=== PATIENT | female | born 2000 | race Caucasian/White ===

== ENCOUNTER 2025-04-13 13:17 | Emergency (ER) | payer BC ==
[2025-04-13 13:21] VITALS: TEMP 98.2
[2025-04-13 14:16] LABS: BASOPHIL % 1.3 % (0.1-1.2); Basophil (Absolute #) 0.07 x10^3/uL (0.01-0.08); Eosinophil (Absolute #) 0.07 x10^3/uL (0.04-0.36); Hematocrit 44.2 % (34.1-44.9); Hemoglobin 15.0 g/dL (11.2-15.7); IMMATURE GRAN # 0.01 x10^3u/L (0.001-0.031); IMMATURE GRAN % 0.2 % (0.001-0.429); Lymphocyte (Absolute #) 2.10 x10^3/uL (1.18-3.74); Mean Corpuscular Hemoglobin 29.4 pg (25.6-32.2); Mean Corpuscular Hgb Concent. 33.9 g/dL (32.2-35.5); Monocyte (Absolute #) 0.36 x10^3/uL (0.24-0.86); NUCLEATED RBC # 0.00 x10^3u/L (0.00-0.012); NUCLEATED RBC % 0.0 % (0.00-0.2); Platelet Count 274 x10^3/uL (182-369); Red Blood Count 5.11 x10^6/uL (3.93-5.22); White Blood Count 5.5 x10^3/uL (3.98-10.04)
--- NOTE | 2025-04-13 14:25 | ERPHSYRPT ---
- History of Present Illness Time Seen by Provider: 04/13/25 14:10 Source: patient Exam Limitations: no limitations Patient Subjective Stated Complaint: patient walked into ED today because shes started taking two meedications on 04/09 for vaginosis and on 04/12 started noticing sideeffects from them Triage Nursing Assessment: patient is alert and orietnedx4, able to ambualte by self, walked to ED today to get checked out shes having nausea, upset stomach dizzyness, chest tightness and headaches that started when she started taking two new medications. skin warm dry and itnact. pupils perrla 3, no edema noted, lung sounds clear, pusles equal bilateral radius Physician History: Patient is a 25-year-old female no significant past medical history, recently diagnosed with a yeast infection and BV started on Flagyl and and Diflucan presents to our ED for possible adverse reaction to medication. Patient experiencing nausea upset stomach dizziness chest tightness and headaches. Patient contacted her provider who felt that her symptoms were related to her medications however patient was advised to come to our ED to rule out cardiac pathology. Patient has no significant past medical history otherwise. No trauma no fever no nausea no vomiting no diarrhea no rash. Patient declined pain medication she is resting comfortably. Patient voices no other complaints or concerns at this time. Portions of this note were created with voice recognition technology. There may be grammatical, spelling, punctuation or sound alike errors Timing/Duration: today Severity: moderate Modifying Factors: Improves With: nothing Associated Symptoms: denies symptoms Allergies/Adverse Reactions: amoxicillin Allergy (Verified 04/13/25 13:19) clindamycin Allergy (Verified 04/13/25 13:19) fluconazole Adverse Reaction (Verified 04/13/25 18:28) metronidazole Adverse Reaction (Verified 04/13/25 18:28) Hx Tetanus, Diphtheria Vaccination/Date Given: Yes Hx Influenza Vaccination/Date Given: No Hx Pneumococcal Vaccination/Date Given: No Immunizations Up to Date: Yes Travel Risk - International Travel Have you traveled outside of the country in past 3 weeks: No - Emerging Infectious Disease Are you exhibiting symptoms associated with any current EIDs: No - Review of Systems All Other Systems: Reviewed and Negative - Past Medical History Pertinent Past Medical History: No - Past Surgical History Past Surgical History: No Significant Family History: no pertinent family hx - Female History Hx Now: No - Social History Smoking Status: Never smoker Exposure to second hand smoke: No Drug Use: none - Social Determinants of Health Will the patient participate in the screening: Yes Do you worry about a steady place to live?: No Do you have any problems with any of the following?: No known problems In the past 12 months,have you had to go without utilities?: No Transportation Issues: No Has anyone in your support network made you feel unsafe?: No Have you or anyone in your house had to go w/o enough food: No - Nursing Vital Signs Nursing Vital Signs: Initial Vital Signs Temperature 98.2 F 04/13/25 13:17 Pulse Rate 89 04/13/25 13:17 Respiratory Rate 20 04/13/25 13:17 Blood Pressure 122/83 04/13/25 13:17 O2 Sat by Pulse Oximetry 99 04/13/25 13:17 Pain Scale Pain Intensity 2 - Physical Exam General Appearance: no apparent distress, alert Eye Exam: PERRL/EOMI, eyes nml inspection Ears, Nose, Throat Exam: normal ENT inspection, moist mucous membranes Neck Exam: normal inspection, full range of motion Respiratory Exam: normal breath sounds, lungs clear, airway intact, No respiratory distress Cardiovascular Exam: regular rate/rhythm, normal heart sounds, normal peripheral pulses Gastrointestinal/Abdomen Exam: soft, normal bowel sounds, No tenderness, No mass Back Exam: normal inspection, normal range of motion, No CVA tenderness, No vertebral tenderness Extremity Exam: normal inspection, normal range of motion, pelvis stable Neurologic Exam: alert, oriented x 3, cooperative, normal mood/affect, sensation nml, No motor deficits Skin Exam: normal color, warm, dry, No rash Lymphatic Exam: No adenopathy SpO2 Interpretation: normal SpO2: 98 O2 Delivery: Room Air - Course Nursing assessment & vital signs reviewed: Yes EKG Interpreted by Me: RATE (76), Sinus Rhythm, NORMAL AXIS, NORMAL INTERVALS, NORMAL QRS - Radiology Exams Chest X-ray Interpretation: Teleradiologist Report (Normal heart lungs and bony thorax) Ordered Tests: Active Orders 24 hr Category Date Time Status 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 STAT Care 04/13/25 14:11 Active IV Insertion STAT Care 04/13/25 14:11 Active Pulse Oximetry (ED) STAT Care 04/13/25 14:11 Active CHEST 1 VIEW (PORTABLE) Stat Exams 04/13/25 14:11 Completed CBC W DIFF Stat Lab 04/13/25 14:00 Completed CMP Stat Lab 04/13/25 14:00 Completed D-DIMER QUANTITATIVE Stat Lab 04/13/25 14:00 Completed NT PRO BNPII Stat Lab 04/13/25 14:00 Completed TROPONIN Q4H Lab 04/13/25 14:00 Completed TROPONIN Q4H Lab 04/13/25 16:17 Completed TROPONIN Q4H Lab 04/13/25 22:15 Ordered Respiratory Therapy Assessment DAILY RT 04/13/25 17:55 Completed Medication Summary Generic Name Dose Route Start Last Admin Trade Name Freq PRN Reason Stop Dose Admin Albuterol Sulfate 8 gm 04/13/25 18:24 Albuterol Sulfate 8 Gm Mdi Hfa IH 05/13/25 18:23 Q4-6HPRN PRN SHORTNESS OF BREATH/WHEEZING Discontinued Medications Generic Name Dose Route Start Last Admin Trade Name Freq PRN Reason Stop Dose Admin Albuterol/Ipratropium 3 ml 04/13/25 17:49 04/13/25 17:53 Ipratropium/Albuterol Sulfate 3 Ml Ampul.Neb IH 04/13/25 17:50 3 ml STAT ONE Administration Albuterol/Ipratropium Confirm 04/13/25 17:52 Ipratropium/Albuterol Sulfate 3 Ml Ampul.Neb Administered 04/13/25 17:53 Dose 3 ml IH .STK-MED ONE Lab/Rad Data: Laboratory Result Diagrams 04/13/25 14:00 04/13/25 14:00 Laboratory Results 04/13/25 04/13/25 04/13/25 Range/Units 16:17 14:00 14:00 WBC (3.98-10.04) x10^3/uL RBC (3.93-5.22) x10^6/uL Hgb (11.2-15.7) g/dL Hct (34.1-44.9) % MCV (79.4-94.8) fL MCH (25.6-32.2) pg MCHC (32.2-35.5) g/dL RDW (11.7-14.4) % Plt Count (182-369) x10^3/uL MPV (9.4-12.3) fL Gran % (34.0-71.1) % Immature Gran % (Auto) (0.001-0.429) % Nucleat RBC Rel Count (0.00-0.2) % Eos # (Auto) (0.04-0.36) x10^3/uL Immature Gran # (Auto) (0.001-0.031) x10^3u/L Absolute Lymphs (auto) (1.18-3.74) x10^3/uL Absolute Monos (auto) (0.24-0.86) x10^3/uL Absolute Nucleated RBC (0.00-0.012) x10^3u/L Lymphocytes % (19.3-51.7) % Monocytes % (4.7-12.5) % Eosinophils % (0.7-5.8) % Basophils % (0.1-1.2) % Absolute Granulocytes (1.56-6.13) x10^3/uL Basophils # (0.01-0.08) x10^3/uL D-Dimer < 0.19 (0.0-0.50) mg/L Sodium (135-145) mmol/L Potassium (3.5-5.1) mmol/L Chloride (98-107) mmol/L Carbon Dioxide (22-30) mmol/L Anion Gap (5-15) MEQ/L BUN (7-17) mg/dL Creatinine (0.52-1.04) mg/dL Estimated GFR ML/MIN Glucose (74-106) mg/dL Calcium (8.4-10.2) mg/dL Total Bilirubin (0.2-1.3) mg/dL AST (14-36) U/L ALT (0-35) U/L Alkaline Phosphatase (38-126) U/L Troponin I < 0.012 < 0.012 (0.000-0.033) ng/mL NT-Pro-B Natriuret Pep (<300) pg/mL Serum Total Protein (6.3-8.2) g/dL Albumin (3.5-5.0) g/dL 04/13/25 04/13/25 Range/Units 14:00 14:00 WBC 5.5 (3.98-10.04) x10^3/uL RBC 5.11 (3.93-5.22) x10^6/uL Hgb 15.0 (11.2-15.7) g/dL Hct 44.2 (34.1-44.9) % MCV 86.5 (79.4-94.8) fL MCH 29.4 (25.6-32.2) pg MCHC 33.9 (32.2-35.5) g/dL RDW 11.9 (11.7-14.4) % Plt Count 274 (182-369) x10^3/uL MPV 9.4 (9.4-12.3) fL Gran % 52.5 (34.0-71.1) % Immature Gran % (Auto) 0.2 (0.001-0.429) % Nucleat RBC Rel Count 0.0 (0.00-0.2) % Eos # (Auto) 0.07 (0.04-0.36) x10^3/uL Immature Gran # (Auto) 0.01 (0.001-0.031) x10^3u/L Absolute Lymphs (auto) 2.10 (1.18-3.74) x10^3/uL Absolute Monos (auto) 0.36 (0.24-0.86) x10^3/uL Absolute Nucleated RBC 0.00 (0.00-0.012) x10^3u/L Lymphocytes % 38.2 (19.3-51.7) % Monocytes % 6.5 (4.7-12.5) % Eosinophils % 1.3 (0.7-5.8) % Basophils % 1.3 H (0.1-1.2) % Absolute Granulocytes 2.89 (1.56-6.13) x10^3/uL Basophils # 0.07 (0.01-0.08) x10^3/uL D-Dimer (0.0-0.50) mg/L Sodium 139 (135-145) mmol/L Potassium 4.0 (3.5-5.1) mmol/L Chloride 102 (98-107) mmol/L Carbon Dioxide 25 (22-30) mmol/L Anion Gap 16.5 H (5-15) MEQ/L BUN 12 (7-17) mg/dL Creatinine 0.93 (0.52-1.04) mg/dL Estimated GFR 87.5 ML/MIN Glucose 89 (74-106) mg/dL Calcium 9.8 (8.4-10.2) mg/dL Total Bilirubin 2.70 H (0.2-1.3) mg/dL AST 29 (14-36) U/L ALT 16 (0-35) U/L Alkaline Phosphatase 100 (38-126) U/L Troponin I (0.000-0.033) ng/mL NT-Pro-B Natriuret Pep 22.3 (<300) pg/mL Serum Total Protein 9.7 H (6.3-8.2) g/dL Albumin 5.4 H (3.5-5.0) g/dL - Progress Progress: improved Progress Note: Patient is a 25-year-old female no significant past medical history, recently diagnosed with a yeast infection and BV started on Flagyl and and Diflucan presents to our ED for possible adverse reaction to medication. Physical exam unremarkable. Laboratory workup negative. D-dimer negative. Troponin negative x 2. Chest x-ray nonremarkable. No acute findings. EKG sinus rhythm. Patient reassessed. Lungs are clear. However patient stated that she felt some tightness upon breathing. Patient received a DuoNeb treatment. Symptoms resolved. Patient ambulated throughout our ED. O2 sat remained within normal limits she was not labored. Patient not tachycardic. We ordered and gave patient a albuterol inhaler for home. A EpiPen prescription was forwarded to patient's pharmacy. We updated patient's allergy profile to include fluconazole and metronidazole. Patient already contacted her provider. They are going to switch her medications in the morning. Patient currently asymptomatic. Patient states ready for discharge. She voices no other complaints or concerns at this time. History obtained from patient Differential diagnosis includes PE, [place], pneumothorax X-ray independently reviewed and interpreted by Dr. Shaw. No acute findings. Formal read confirms no acute finding. I contemplated administering a dose of steroids. However patient's symptomology resolved after 1 DuoNeb nebulizer treatment. Portions of this note were created with voice recognition technology. There may be grammatical, spelling, punctuation or sound alike errors Complexity of problem addressed is moderate acute complicated. No critical care time. Complex of data reviewed and analyzed is moderate. Test ordered chest reviewed results analyzed and correlated clinically with history and physical exam. Risk of complication at risk of morbidity/mortality of patient management is moderate. A prescription for EpiPen forwarded to patient's pharmacy. Patient received albuterol MDI upon discharge from our ED. Vital stable. Time spent to discharge patient is approximately 15 minutes. Plan of care established for shared decision making. No social determinants of health present to impede follow-up. Portions of this note were created with voice recognition technology. There may be grammatical, spelling, punctuation or sound alike errors 04/13/25 18:31 Counseled pt/family regarding: lab results, diagnosis, need for follow-up - Departure Departure Disposition: Home Clinical Impression: Adverse medication reaction, Total bilirubin, elevated Condition: Stable Critical Care Time: No Referrals: CORINNA LOZADA [Primary Care Provider, PULMONARY MEDICINE] - Follow up/PCP as directed Additional Instructions: Discharge/Care Plan SIMONE ELDER was seen on 04/13/25 in the Emergency Room. The patient was counseled regarding Diagnosis,Lab results, Imaging studies, need for follow up and when to return to the Emergency Room. Prescriptions given: Discharge Note I have spoken with the patient and/or caregivers. I have explained the patient's condition, diagnosis and treatment plan based on the information available to me at this time. I have answered the patient's and/or caregiver's questions and addressed any concerns. The patient and/or caregivers have as good understanding of the patient's diagnosis, condition and treatment plan as can be expected at this point. The vital signs have been stable. The patient's condition is stable and appropriate for discharge from the emergency department. The patient will pursue further outpatient evaluation with the primary care physician or other designated or consulting physician as outlined in the discharge instructions. The patient and/or caregivers are agreeable to this plan of care and follow-up instructions have been explained in detail. The patient and/or caregivers have received these instruction. The patient/and or caregivers are aware that any significant change in condition or worsening of symptoms should prompt an immediate return to this or the closest emergency department or call 911. Prescriptions: EPINEPHrine [Epipen 2-Ashu] 0.3 mg IJ DAILY #1 packet
[2025-04-13 14:36] LABS: Calcium 9.8 mg/dL (8.4-10.2); Carbon Dioxide 25.0 mmol/L (22-30); Creatinine 1 0.93 mg/dL (0.52-1.04); EST GLOMERULAR FILTRATION RATE 87.5 ML/MIN; Glucose 89.0 mg/dL (74-106); NT PRO BNPII 22.3 pg/mL (<300); Potassium 4.0 mmol/L (3.5-5.1); SGOT/AST 29.0 U/L (14-36); SGPT/ALT 16.0 U/L (0-35); Total Protein 9.7 g/dL (6.3-8.2)
--- NOTE | 2025-04-13 14:42 | XRAY ---
Indication: Pain. Comparison: None Portable chest demonstrates normal heart, lungs, and bony thorax with a few incidental tiny left lung calcified granulomas.
[2025-04-13] MEDS ORDERED: DUONEB 0.5-3 MG/3 ml Neb IH ONE (17:52)
[2025-04-13] MEDS: DUONEB 0.5-3 MG/3 ml Neb IH ONE (17:53)
[2025-04-13 18:15] VITALS: PULSE 97; RESP 16
[2025-04-13 18:26] VITALS: BP 120/66
[2025-04-13 18:28] VITALS: O2SAT 98
[2025-04-13] MEDS ORDERED: Ventolin Hfa MDI IH ONE (18:34)
[2025-04-13] MEDS: Ventolin Hfa MDI IH PRN (18:40)
== END 2025-04-13 18:47 | disposition home or self-care (01) ==
LOC: ED 13:17
DX: R11.0 Nausea (principal); T50.915A Adverse effect of multiple unspecified drugs, medicaments and biological substances, initial encounter; E80.6 Other disorders of bilirubin metabolism; R42 Dizziness and giddiness; R07.9 Chest pain, unspecified; R51.9 Headache, unspecified